=== PATIENT | female | born 2000 ===

== ENCOUNTER 2024-10-22 13:27 | Emergency (ER) | payer OTHER ==
[~2024-10-22] VITALS: Ht 162.6 cm; Wt 537.5 kg
[2024-10-22] MEDS ORDERED: Methadone HCL 10 MG TAB PO ONE (15:25)
== END 2024-10-22 15:29 | disposition home or self-care (01) ==
LOC: ER 13:27
DX: F11.90 Opioid use, unspecified, uncomplicated (principal); Z76.0 Encounter for issue of repeat prescription
CPT/HCPCS: 99281; A9270

== ENCOUNTER 2025-05-08 19:18 | Emergency (ER) | payer OTHER ==
[~2025-05-08] VITALS: Ht 162.6 cm; Wt 53.5 kg
== END 2025-05-08 20:19 | disposition home or self-care (01) ==
LOC: ER 19:18
DX: Z76.89 Persons encountering health services in other specified circumstances (principal); Z59.89 Other problems related to housing and economic circumstances
CPT/HCPCS: 99281